=== PATIENT | female | born 1935 | race Caucasian/White ===

== ENCOUNTER 2021-09-24 11:30 | Emergency (ER) | payer MEDICARE ==
[2021-09-24 11:40] VITALS: BP 178/79; PULSE 69
[2021-09-24] MEDS ORDERED: Take Home: Cyclobenzaprine 10 MG Tab, 4 Tab Pack PO ONE (12:29)
== END 2021-09-24 12:49 | disposition home or self-care (01) ==
LOC: VM.ED 11:30
DX: G89.29 Other chronic pain (principal); M54.6 Pain in thoracic spine; E78.00 Pure hypercholesterolemia, unspecified; I10 Essential (primary) hypertension; J45.909 Unspecified asthma, uncomplicated; K21.9 Gastro-esophageal reflux disease without esophagitis; M19.90 Unspecified osteoarthritis, unspecified site; Z88.8 Allergy status to other drugs, medicaments and biological substances; Z79.82 Long term (current) use of aspirin; Z79.899 Other long term (current) drug therapy
CPT/HCPCS: 99283; 99284; A9270-GY